=== PATIENT | female | born 1955 | race Caucasian/White ===

== ENCOUNTER → 2016-07-03 | Outpatient (CLI) | payer OTHER ==
[~2016-07-03] MED LIST: DITROPAN5 MG DOB; GLUCOSAMINE-CH1 EAC3 PO; LISINOPRIL20 MG PO; LORTAB 5/500 TA1 TA1 PO; METOPROLOL SUCC25 MG PO; NORVASC PO; PHENERGAN PO; SULAR PO; SYNTHROID125 PO; TOPROL XL PO; ULTRAM PO; VICODIN PO; VITAMIN D2000 UNIT PO
--- NOTE | ~2016-07-03 | MY11 ---
[facility] A Service of [facility] RADIOLOGY TEXT RESULTS PATIENT: EMI LARA LOCATION: [facility] : 55 UNIT #: [id number] AGE: [address]: Rosalind Presley MD SEX: F ORDER DR: [id number] [facility] [address] [place], [place] [address] [id number] O MR#: [id number] Acc #: [id number] NAME: EMI LARA : 1955 SEX: F STUDY DATE/TIME: 07/03/2016 11:09 UNIT: [facility] ROOM: STUDY DESCRIPTION: MY Mammogram Screening [place] Attending Physician: Rosalind Presley M.D. Referring Physician: Rosalind Presley M.D. Ordering Physician: Rosalind Presley M.D. Primary Care Physician: Rosalind Presley M.D. MEDICAL IMAGING REPORT This report is preliminary unless electronic signature is present EXAM Bilateral Digital Screening Mammogram with CAD INDICATION Breast cancer screening. 60-year-old asymptomatic female who reports a mother, an aunt and a grandmother with breast cancer. COMPARISON Post biopsy right diagnostic mammogram dated July 16, 2015 as well as other mammograms dated June 29, 2015, January 16, 2011, November 14, 2002. FINDINGS The breasts are almost entirely fatty. No suspicious findings are present. IMPRESSION No mammographic evidence of malignancy. Annual screening mammography and clinical breast exam are recommended. A result letter will be sent to the patient. Patients over the age of 40 are entered into a reminder system with target due date for the next mammogram. BIRADS: 1 Negative Dictated by... Chay Blum M.D. THIS IS AN ELECTRONICALLY VERIFIED REPORT Chay Blum M.D. at 07/05/2016 10:55 AM BLM/bd [facility] A Service of [facility] RADIOLOGY TEXT RESULTS PATIENT: EMI LARA LOCATION: [facility] : 55 UNIT #: [id number] AGE: [address]: Rosalind Presley MD SEX: F ORDER DR: TD: 07/03/2016 14:08 JOB #: [id number] MEDICAL IMAGING REPORT Page 1 of 1 COPY
== END | disposition home or self-care (01) ==
LOC: CWCC 10:27
DX: Z12.31 Encounter for screening mammogram for malignant neoplasm of breast (principal); Z80.3 Family history of malignant neoplasm of breast
CPT/HCPCS: G0202

== ENCOUNTER → 2016-10-18 | Outpatient (CLI) | payer OTHER ==
--- NOTE | ~2016-10-18 | US84 ---
[id number] [facility] [address] [place], [place] [address] [id number] O MR#: [id number] Acc #: [id number] NAME: EMI LARA : 1955 SEX: F STUDY DATE/TIME: 10/18/2016 8:55 UNIT: [facility] ROOM: STUDY DESCRIPTION: US LE Veins Complete Gordo Stdy Attending Physician: Lauren Liu Referring Physician: Lauren Liu Ordering Physician: Lauren Liu Primary Care Physician: Rosalind Presley M.D. MEDICAL IMAGING REPORT This report is preliminary unless electronic signature is present EXAM Bilateral lower extremity Doppler venous ultrasound DATE 10/18/2016 HISTORY Bilateral extremity pain and swelling for 4 weeks COMPARISON None TECHNIQUE Venous ultrasound examination of both lower extremities was performed using grayscale, spectral Doppler and color flow Doppler imaging. FINDINGS The examination is negative. There is no evidence of deep venous thrombus from the groin to the lower calf bilaterally. Visualized greater saphenous veins are also patent. IMPRESSION Negative examination. No evidence of lower extremity deep venous thrombosis. Dictated by... Tina Betts M.D. THIS IS AN ELECTRONICALLY VERIFIED REPORT Tina Betts M.D. at 10/20/2016 9:34 PM [facility]/to TD: 10/18/2016 15:11 JOB #: [id number] MEDICAL IMAGING REPORT Page 1 of 1 COPY
== END | disposition home or self-care (01) ==
LOC: CNIV 08:30
DX: R60.0 Localized edema (principal)
CPT/HCPCS: 93970